=== PATIENT | male | born 1945 | race Caucasian/White ===

== ENCOUNTER 2021-08-24 11:50 | Outpatient (CLI) | payer MEDICARE ==
[2021-08-24 23:43] LABS: SARS-CoV-2 PCR by NAA Not Detected (NotDetected)
== END 2021-08-24 11:51 | disposition home or self-care (01) ==
LOC: CSHLAB 11:50
PROVIDERS: ATTEND Internal Medicine Gastroenterology
DX: Z20.822 Contact with and (suspected) exposure to COVID-19 (principal); K63.5 Polyp of colon
CPT/HCPCS: U0003; U0005

== ENCOUNTER 2021-08-27 08:44 | Day surgery (SDC) | payer MEDICARE ==
[2021-08-21 14:57] VITALS: BMI 34.7
[2021-08-27] MEDS ORDERED: Lidocaine 1% MPF 2 ML VIAL ONE (09:18)
[2021-08-27] MEDS ORDERED: Lidocaine 1% PF 5 ML VIAL ONE (09:40)
[2021-08-27] MEDS ORDERED: PROPOFOL 40 ML ONE (09:40)
[2021-08-27] MEDS ORDERED: PHENYLEPHRINE-NS 100 MCG/ML 10 ML SYRINGE ONE (09:55)
[2021-08-27] MEDS ORDERED: PROPOFOL 20 ML ONE (10:11)
== END 2021-08-27 10:53 | disposition home or self-care (01) ==
LOC: CSHSDC 08:44
PROVIDERS: ATTEND Internal Medicine Gastroenterology
PROC: 0DJD8ZZ Inspection of Lower Intestinal Tract, Via Natural or Artificial Opening Endoscopic (ICD-10-PCS; principal; 2021-08-27)
DX: R19.7 Diarrhea, unspecified (principal); Z86.010 Personal history of colon polyps; Q43.8 Other specified congenital malformations of intestine; K64.9 Unspecified hemorrhoids; I10 Essential (primary) hypertension; E11.9 Type 2 diabetes mellitus without complications; E78.5 Hyperlipidemia, unspecified; F41.9 Anxiety disorder, unspecified; F32.A Depression, unspecified; N40.0 Benign prostatic hyperplasia without lower urinary tract symptoms; F17.220 Nicotine dependence, chewing tobacco, uncomplicated
CPT/HCPCS: J2704

== ENCOUNTER 2021-09-10 14:17 | Emergency (ER) | payer MEDICARE ==
[2021-09-10 15:54] LABS: #Basophils 0.1 10x3/uL (0.0-0.2); #Eosinphils 0.3 10x3/uL (0.0-0.5); #Monocytes 0.7 10x3/uL (0.0-1.1); %Basophils 0.9 % (0.0-2.0); %Eosinophils 3.6 % (0.0-6.0); %Monocytes 9.4 % (0.0-10.0); Hemoglobin 13.3 g/dL (13.5-17.5); Mean Corpuscular HGB CONC 32.9 g/dL (32.0-36.0); Mean Corpuscular Hemoglobin 29.7 pg (27.0-33.0); Mean Corpuscular Volume 90.2 fl (81.2-95.1); Mean Platelet Volume 8.4 fl (7.4-10.4); Platelet Count 410 10x3/uL (150-450); RBC Distribution Width 13.7 % (11.5-14.5); Red Blood Cell (RBC) Count 4.48 10x6/uL (4.32-5.72)
[2021-09-10 16:12] LABS: ALT (SGPT) 23 U/L (8-55); AST (SGOT) 15 U/L (5-34); Albumin 3.4 g/dL (3.4-4.8); Alkaline Phosphatase 57 U/L (40-110); Anion Gap 12 mmol/L (10-20); BUN (Urea Nitrogen) 17 mg/dL (8.4-25.7); Bilirubin, Total 0.2 mg/dL (0.2-1.2); Calc. Creatinine Clearance 0 mL/min (70-130); Calcium 9.1 mg/dL (7.8-10.44); Carbon Dioxide 27 mmol/L (23-31); Chloride 107 mmol/L (98-107); Globulin 2.9 g/dL (2.4-3.5); Glucose 180 mg/dL (83-110); Protein, Total 6.3 g/dL (5.8-8.1); Sodium 142 mmol/L (136-145)
== END 2021-09-10 17:00 | disposition home or self-care (01) ==
LOC: CSHERS 14:17
DX: R42 Dizziness and giddiness (principal); E11.9 Type 2 diabetes mellitus without complications; I10 Essential (primary) hypertension; Z79.84 Long term (current) use of oral hypoglycemic drugs; Z79.899 Other long term (current) drug therapy
CPT/HCPCS: 70450; 80053; 85025; 93005

== ENCOUNTER 2022-03-17 13:33 | Outpatient (CLI) | payer MEDICARE | END 2022-03-17 13:34 | disposition home or self-care (01) | LOC: CSHULT 13:33 | PROVIDERS: ATTEND Internal Medicine | DX: R06.09 Other forms of dyspnea (principal); I51.9 Heart disease, unspecified | CPT/HCPCS: 93306 ==

== ENCOUNTER 2022-08-05 02:21 | Inpatient (IN) | payer OTHER, MEDICARE ==
[2022-08-05 03:12] LABS: #Basophils 0.1 10x3/uL (0.0-0.2); #Monocytes 1.1 10x3/uL (0.0-1.1); #Neutrophils 10.2 10x3/uL (1.5-8.4); %Basophils 0.4 % (0.0-2.0); %Eosinophils 0.2 % (0.0-6.0); %Lymphocytes 3.4 % (18.0-47.0); %Monocytes 9.4 % (0.0-10.0); %Neutrophils 85.8 % (40.0-75.0); Hemoglobin 14.5 g/dL (13.5-17.5); Mean Corpuscular HGB CONC 33.6 g/dL (32.0-36.0); Mean Corpuscular Hemoglobin 29.5 pg (27.0-33.0); Mean Corpuscular Volume 87.8 fl (81.2-95.1); Mean Platelet Volume 8.9 fl (7.4-10.4); Platelet Count 256 10x3/uL (150-450); RBC Distribution Width 14.3 % (11.5-14.5); Red Blood Cell (RBC) Count 4.91 10x6/uL (4.32-5.72); White Blood Cell (WBC) Count 11.8 10x3/uL (3.5-10.5)
[2022-08-05 03:25] LABS: ALT (SGPT) 30 U/L (8-55); AST (SGOT) 19 U/L (5-34); Albumin 3.8 g/dL (3.4-4.8); Alkaline Phosphatase 55 U/L (40-110); Anion Gap 20 mmol/L (10-20); BUN (Urea Nitrogen) 10 mg/dL (8.4-25.7); Bilirubin, Total 0.6 mg/dL (0.2-1.2); CK (CPK) 208 U/L (30-200); Calc. Creatinine Clearance 0 mL/min (70-130); Calcium 8.6 mg/dL (7.8-10.44); Carbon Dioxide 17 mmol/L (23-31); Chloride 99 mmol/L (98-107); Estimated GFR 80; Globulin 2.6 g/dL (2.4-3.5); Glucose 214 mg/dL (83-110); Lipase 15 U/L (8-78); Potassium 3.6 mmol/L (3.5-5.1); Protein, Total 6.4 g/dL (5.8-8.1); Sodium 132 mmol/L (136-145)
[2022-08-05] MEDS ORDERED: Vancomycin 1 GM VIAL ONE (04:30)
[2022-08-05] MEDS ORDERED: cefTRIAXone\\ROCEPHIN 2 GM VIAL ONE (04:30)
[2022-08-05 05:03] LABS: SARS-CoV-2 NAA Rapid Test Not Detected (NotDetected)
[2022-08-05 05:44] LABS: Bilirubin Neg (Negative); Blood, Urine 10 (Negative); Clarity Clear (Clear); Glucose, Urine (Dipstick) 100 mg/dL (Negative); Ketone, Urine 15 mg/dL (Negative); Leukocyte 100 (Negative); Nitrite Negative (Negative); Protein, Urine (Dipstick) 30 mg/dl (Neg-Trace); Specific Gravity, Urine 1.015 (1.005-1.030); Urobilinogen Normal mg/dL (Less than 2)
[2022-08-05 05:49] LABS: Bacteria/HPF None Seen HPF (None Seen); RBC/HPF 0-3 HPF (0-3)
[2022-08-05 06:32] LABS: Anion Gap 17 mmol/L (10-20); BUN (Urea Nitrogen) 10 mg/dL (8.4-25.7); Calc. Creatinine Clearance 0 mL/min (70-130); Calcium 8.4 mg/dL (7.8-10.44); Carbon Dioxide 20 mmol/L (23-31); Chloride 104 mmol/L (98-107); Estimated GFR 86; Glucose 154 mg/dL (83-110); Potassium 4.1 mmol/L (3.5-5.1); Sodium 137 mmol/L (136-145)
[2022-08-05 06:34] LABS: Lactic Acid 4.2 mmol/L (0.5-2.2)
[2022-08-05] MEDS ORDERED: Communication Order-Pharmacy FS ONE (06:50)
[2022-08-05] MEDS ORDERED: Senokot S 8.6-50 MG TAB PO PRN (06:53)
[2022-08-05] MEDS ORDERED: Dextrose 5% in Water 1,000 ML IV PRN (07:25)
[2022-08-05] MEDS ORDERED: Dextrose 50% Abboject 50 ML SYRINGE SLOW IVP PRN (07:25)
[2022-08-05 07:44] LABS: Magnesium 1.2 mg/dL (1.6-2.6)
[2022-08-05] MEDS ORDERED: Lactated Ringer's 1,000 ML IV SCH (08:00)
[2022-08-05 08:34] VITALS: BMI 33.0
[2022-08-05] MEDS ORDERED: Cefepime 2 GM in Sodium Chloride 0.9% 100 ML IVPB SCH (09:00)
[2022-08-05] MEDS ORDERED: Lactated Ringer's 500 ML IV SCH (09:00)
[2022-08-05] MEDS ORDERED: SEMAGLUTIDE 7 MG PO SCH (09:00)
[2022-08-05] MEDS: Isosorbide Dinitrate 10 MG TAB PO SCH ×2 (09:18→21:43)
[2022-08-05] MEDS: Aspirin 81 mg Enteric Coated Tablet PO SCH (09:19)
[2022-08-05] MEDS: Vancomycin HCl 750 MG in Sodium Chloride 0.9% 250 ML 250 ML IVPB SCH ×2 (09:19→11:07)
[2022-08-05] MEDS: FLUoxetine HCl 20 MG CAP PO SCH (09:20)
[2022-08-05] MEDS: Cholecalciferol 1,000 UNITS (25 MCG) TAB PO SCH (09:20)
[2022-08-05] MEDS: Lisinopril 5 MG TAB PO SCH (09:20)
[2022-08-05] MEDS: Sodium Chloride 0.9% 1,000 ML IV SCH ×2 (09:21→14:29)
[2022-08-05] MEDS: HumaLOG 300 UNITS/3 ML VIAL SC PRN ×2 (11:25→21:44)
[2022-08-05] MEDS ORDERED: HYDROcodone/Acetaminophen 7.5/325 mg Tablet PO PRN (13:25)
[2022-08-05] MEDS ORDERED: Electrolyte Replacement Protocol 1 EACH FS SCH (13:45)
[2022-08-05] MEDS: Magnesium 2 GM/50 ML(in water) 2 GM in Premix Bag 1 BAG IVPB SCH ×2 (14:16→16:19)
[2022-08-05] MEDS: Acetaminophen 325 MG TAB PO PRN (14:16)
[2022-08-05] MEDS ORDERED: Lidocaine 1% 20 ML MDV SC SCH (16:15)
[2022-08-05 18:25] LABS: Lactic Acid 1.8 mmol/L (0.5-2.2)
[2022-08-05] MEDS ORDERED: Vancomycin HCl 1 GM in Sodium Chloride 0.9% 250 ML 250 ML IVPB SCH (21:00)
[2022-08-05] MEDS ORDERED: Vancomycin 1.5 GRAM/300 ML BAG IVPB SCH (21:00)
[2022-08-05] MEDS: Finasteride 5 MG TAB PO SCH (21:43)
[2022-08-05] MEDS: QUEtiapine 100 MG TAB PO SCH (21:43)
[2022-08-05] MEDS: Atorvastatin Calcium 40 MG TAB PO SCH (21:43)
[2022-08-06] MEDS: Sodium Chloride 0.9% 1,000 ML IV SCH ×2 (03:33→10:19)
[2022-08-06] MEDS: cefTRIAXone\\ROCEPHIN 1 GM in Sodium Chloride 0.9% 100 ML IVPB SCH (03:35)
[2022-08-06 04:42] LABS: #Eosinphils 0.3 10x3/uL (0.0-0.5); #Monocytes 1.1 10x3/uL (0.0-1.1); #Neutrophils 4.9 10x3/uL (1.5-8.4); %Basophils 0.4 % (0.0-2.0); %Eosinophils 3.9 % (0.0-6.0); %Lymphocytes 11.1 % (18.0-47.0); Mean Corpuscular HGB CONC 33.5 g/dL (32.0-36.0); Mean Corpuscular Hemoglobin 29.6 pg (27.0-33.0); Mean Corpuscular Volume 88.4 fl (81.2-95.1); Mean Platelet Volume 9.4 fl (7.4-10.4); Platelet Count 219 10x3/uL (150-450); RBC Distribution Width 14.3 % (11.5-14.5); Red Blood Cell (RBC) Count 4.39 10x6/uL (4.32-5.72); White Blood Cell (WBC) Count 7.1 10x3/uL (3.5-10.5)
[2022-08-06 04:51] LABS: Anion Gap 14 mmol/L (10-20); BUN (Urea Nitrogen) 8 mg/dL (8.4-25.7); Calc. Creatinine Clearance 125 mL/min (70-130); Calcium 7.8 mg/dL (7.8-10.44); Carbon Dioxide 21 mmol/L (23-31); Chloride 105 mmol/L (98-107); Estimated GFR 95; Glucose 138 mg/dL (83-110); Magnesium 2.3 mg/dL (1.6-2.6); Potassium 3.8 mmol/L (3.5-5.1); Sodium 136 mmol/L (136-145)
[2022-08-06] MEDS ORDERED: glipiZIDE 5 MG TAB PO SCH (09:00)
[2022-08-06] MEDS: Aspirin 81 mg Enteric Coated Tablet PO SCH (10:05)
[2022-08-06] MEDS: Cholecalciferol 1,000 UNITS (25 MCG) TAB PO SCH (10:06)
[2022-08-06] MEDS: Lisinopril 5 MG TAB PO SCH (10:06)
[2022-08-06] MEDS: FLUoxetine HCl 20 MG CAP PO SCH (10:07)
[2022-08-06] MEDS: Acetaminophen 325 MG TAB PO PRN (10:07)
[2022-08-06] MEDS: Isosorbide Dinitrate 10 MG TAB PO SCH ×2 (10:07→21:40)
[2022-08-06] MEDS: HumaLOG 300 UNITS/3 ML VIAL SC PRN (12:05)
[2022-08-06] MEDS: glipiZIDE 5 MG TAB PO SCH (16:20)
[2022-08-06] MEDS: Finasteride 5 MG TAB PO SCH (21:40)
[2022-08-06] MEDS: QUEtiapine 100 MG TAB PO SCH (21:40)
[2022-08-06] MEDS: Atorvastatin Calcium 40 MG TAB PO SCH (22:01)
[2022-08-07 04:09] LABS: Hemoglobin 12.6 g/dL (13.5-17.5); Mean Corpuscular HGB CONC 32.4 g/dL (32.0-36.0); Mean Corpuscular Hemoglobin 29.3 pg (27.0-33.0); Mean Corpuscular Volume 90.5 fl (81.2-95.1); Mean Platelet Volume 9.2 fl (7.4-10.4); Platelet Count 228 10x3/uL (150-450); RBC Distribution Width 14.2 % (11.5-14.5); White Blood Cell (WBC) Count 5.2 10x3/uL (3.5-10.5)
[2022-08-07 04:12] LABS: MDiff Complete? YES; Manual Diff?? YES
[2022-08-07 04:17] LABS: Anion Gap 13 mmol/L (10-20); BUN (Urea Nitrogen) 9 mg/dL (8.4-25.7); Calc. Creatinine Clearance 135 mL/min (70-130); Calcium 8.3 mg/dL (7.8-10.44); Carbon Dioxide 21 mmol/L (23-31); Chloride 107 mmol/L (98-107); Estimated GFR 98; Glucose 143 mg/dL (83-110); Potassium 3.4 mmol/L (3.5-5.1); Sodium 138 mmol/L (136-145)
[2022-08-07 04:35] LABS: Band 5 % (5-11); Eosinophils 6 % (0-10); Lymphocytes 13 % (21-51); Monocytes 15 % (0-10); Neutrophil 52 % (42-75); Reactive Lymphocytes 9 % (0-10)
[2022-08-07] MEDS: cefTRIAXone\\ROCEPHIN 1 GM in Sodium Chloride 0.9% 100 ML IVPB SCH (04:35)
[2022-08-07 04:36] LABS: Platelet Morphology Comment Appears Adequate
[2022-08-07 04:37] LABS: Anisocytosis SLIGHT = 6-15 cells (100X) (0-5/hpf); Elliptocytes SLIGHT = 2-5 cells (100X) (0-1/hpf); Macrocytosis SLIGHT = 6-15 cells (100X) (0-5/hpf); Microcytosis SLIGHT = 6-15 cells (100X) (0-5/hpf)
[2022-08-07] MEDS ORDERED: Potassium Chloride 20 MEQ TAB PO SCH ×2 (08:00→11:00)
[2022-08-07] MEDS: FLUoxetine HCl 20 MG CAP PO SCH (09:20)
[2022-08-07] MEDS: Aspirin 81 mg Enteric Coated Tablet PO SCH (09:21)
[2022-08-07] MEDS: glipiZIDE 5 MG TAB PO SCH ×2 (09:21→17:06)
[2022-08-07] MEDS: Lisinopril 5 MG TAB PO SCH (09:21)
[2022-08-07] MEDS: Isosorbide Dinitrate 10 MG TAB PO SCH (09:21)
[2022-08-07] MEDS: Cholecalciferol 1,000 UNITS (25 MCG) TAB PO SCH (09:22)
[2022-08-07 17:04] VITALS: BP 132/78; TEMP 98.7
== END 2022-08-07 18:10 | disposition home health service (06) | DRG 872 ==
LOC: SUATTDRO 02:21 → CSHERS 02:21 → CSHTELE 06:53
PROVIDERS: ADMIT Internal Medicine; ATTEND Family Medicine
PROC: 0HQKXZZ Repair Right Lower Leg Skin, External Approach (ICD-10-PCS; principal; 2022-08-05)
PROC: 3E03329 Introduction of Other Anti-infective into Peripheral Vein, Percutaneous Approach (ICD-10-PCS; 2022-08-05)
DX: A41.9 Sepsis, unspecified organism (principal); E87.20 Acidosis, unspecified; N39.0 Urinary tract infection, site not specified; N13.8 Other obstructive and reflux uropathy; Z20.822 Contact with and (suspected) exposure to COVID-19; E66.9 Obesity, unspecified; I10 Essential (primary) hypertension; E11.9 Type 2 diabetes mellitus without complications; N40.1 Benign prostatic hyperplasia with lower urinary tract symptoms; E87.6 Hypokalemia; F98.8 Other specified behavioral and emotional disorders with onset usually occurring in childhood and adolescence; N43.3 Hydrocele, unspecified; S81.011A Laceration without foreign body, right knee, initial encounter; W01.0XXA Fall on same level from slipping, tripping and stumbling without subsequent striking against object, initial encounter; F41.9 Anxiety disorder, unspecified; E78.5 Hyperlipidemia, unspecified; F32.A Depression, unspecified; Z79.82 Long term (current) use of aspirin; Z79.899 Other long term (current) drug therapy; Z79.84 Long term (current) use of oral hypoglycemic drugs; Z90.89 Acquired absence of other organs; Z83.3 Family history of diabetes mellitus; Z82.49 Family history of ischemic heart disease and other diseases of the circulatory system; Z68.33 Body mass index [BMI] 33.0-33.9, adult
CPT/HCPCS: 36415; 36416; 70450; 71045; 74176; 76856; 76870; 80048; 80053; 81003; 81015; 82010; 82550; 83605; 83690; 83735; 84146; 84484; 85025; 87040; 87086; 93005; 93976; 96365; 96366; 96367; 97139; J0696; J1650; J1815; J3370; J3475; J3490; J7050; J7120; U0002

== ENCOUNTER 2022-08-08 17:55 | Inpatient (IN) | payer MEDICARE ==
[~2022-08-08 17:55] MED LIST: Amiodarone 150 MG/3 ML VIAL ONE
[2022-08-08] MEDS ORDERED: Amiodarone In Dextrose 200 ML ONE (18:20)
[2022-08-08 18:25] LABS: Hemoglobin 13.3 g/dL (13.5-17.5); MDiff Complete? YES; Manual Diff?? YES; Mean Corpuscular HGB CONC 31.1 g/dL (32.0-36.0); Mean Corpuscular Hemoglobin 29.6 pg (27.0-33.0); Mean Corpuscular Volume 94.9 fl (81.2-95.1); Mean Platelet Volume 9.6 fl (7.4-10.4); Platelet Count 405 10x3/uL (150-450); White Blood Cell (WBC) Count 22.9 10x3/uL (3.5-10.5)
[2022-08-08 18:29] LABS: PTT 26.5 sec (22.0-33.0); Prothrombin Time 10.9 sec (9.5-12.1)
[2022-08-08] MEDS ORDERED: Amiodarone In Dextrose 200 ML IVPB SCH (18:30)
[2022-08-08 18:36] LABS: ALT (SGPT) 124 U/L (8-55); AST (SGOT) 85 U/L (5-34); Albumin 3.6 g/dL (3.4-4.8); Alkaline Phosphatase 105 U/L (40-110); Anion Gap 30 mmol/L (10-20); BUN (Urea Nitrogen) 11 mg/dL (8.4-25.7); Bilirubin, Total 0.4 mg/dL (0.2-1.2); CK (CPK) 371 U/L (30-200); Calc. Creatinine Clearance 0 mL/min (70-130); Calcium 8.5 mg/dL (7.8-10.44); Carbon Dioxide 10 mmol/L (23-31); Chloride 103 mmol/L (98-107); Estimated GFR 56; Globulin 2.7 g/dL (2.4-3.5); Glucose 367 mg/dL (83-110); Lipase 104 U/L (8-78); Magnesium 1.9 mg/dL (1.6-2.6); Potassium 4.8 mmol/L (3.5-5.1); Protein, Total 6.3 g/dL (5.8-8.1); Sodium 138 mmol/L (136-145)
[2022-08-08 18:40] LABS: Band 7 % (5-11); Eosinophils 3 % (0-10); Lymphocytes 21 % (21-51); Monocytes 8 % (0-10); Neutrophil 60 % (42-75); Reactive Lymphocytes 1 % (0-10)
[2022-08-08 18:41] LABS: Platelet Morphology Comment Appears Adequate; RBC Morphology Normal
[2022-08-08 18:55] LABS: CKMB 4.5 ng/mL (0-6.6)
[2022-08-08 19:07] LABS: Phosphorus 6.4 mg/dL (2.3-4.7)
[2022-08-08] MEDS ORDERED: Cefepime 2 GM VIAL ONE (19:15)
[2022-08-08] MEDS ORDERED: Aspirin Chewable 81 MG TAB ONE (19:15)
[2022-08-08] MEDS ORDERED: Vancomycin 1 GM VIAL ONE (19:50)
[2022-08-08] MEDS ORDERED: INSULIN REGULAR IN 0.9 % NACL 100 UNIT/100 ML BAG ONE (19:50)
[2022-08-08] MEDS ORDERED: Communication Order-Pharmacy FS ONE (20:12)
[2022-08-08] MEDS ORDERED: Electrolyte Replacement Protocol IVPB SCH (20:23)
[2022-08-08] MEDS ORDERED: Dextrose 5 %-0.45 % NaCl 1,000 ML IV PRN (20:23)
[2022-08-08] MEDS ORDERED: Sodium Chloride 0.9% 1,000 ML IV PRN ×4 (20:23)
[2022-08-08] MEDS ORDERED: NS 0.9% w/ 20 MEQ KCL 1,000 ML IV PRN ×2 (20:23)
[2022-08-08] MEDS ORDERED: Dextrose 50% Abboject 50 ML SYRINGE SLOW IVP PRN (20:23)
[2022-08-08] MEDS ORDERED: INSULIN REGULAR IN 0.9 % NACL 100 UNIT in Premix Bag 1 BAG IVPB SCH (20:30)
[2022-08-08] MEDS ORDERED: Amiodarone In Dextrose 360 MG in Premix Bag 1 BAG IVPB SCH (20:30)
[2022-08-08] MEDS ORDERED: Acetaminophen 325 MG TAB PO PRN (20:30)
[2022-08-08] MEDS ORDERED: Piperacillin/Tazobactam 3.375 GM in Sodium Chloride 0.9% 100 ML IVPB SCH (20:45)
[2022-08-08 21:19] LABS: SARS-CoV-2 NAA Rapid Test Not Detected (NotDetected)
[2022-08-08 21:34] VITALS: BMI 33.4
[2022-08-08] MEDS ORDERED: Vancomycin HCl 1 GM in Sodium Chloride 0.9% 250 ML 250 ML IVPB SCH (21:45)
[2022-08-08 21:53] LABS: Actual Bicarbonate (HCO3v) 15 mEq/L (22-28); Base Excess -7.9 mEq/L (-2 - +2); Calcium, Ionized (venous) 0.97 mmol/L (1.16-1.32); Chloride (VBG) 106 mmol/L (98-106); Critical Notified By: Udy, RRT; Hemoglobin (Hb) 13.4 g/dL (12.6-17.4); Puncture Site Other Site; RapidComm Collect By LAB; pH (venous) 7.39 (7.32-7.43)
[2022-08-08 21:55] LABS: Lactic Acid 4.7 mmol/L (0.5-2.2)
[2022-08-08 22:06] LABS: Troponin I 3.793 ng/mL (< 0.028)
[2022-08-08] MEDS: D5 1/2 NS w/20 mEq KCL 1,000 ML IV PRN (22:11)
[2022-08-08 22:13] LABS: Anion Gap 18 mmol/L (10-20); BUN (Urea Nitrogen) 12 mg/dL (8.4-25.7); Calc. Creatinine Clearance 88 mL/min (70-130); Calcium 7.6 mg/dL (7.8-10.44); Carbon Dioxide 14 mmol/L (23-31); Chloride 110 mmol/L (98-107); Estimated GFR 77; Glucose 142 mg/dL (83-110); Magnesium 1.8 mg/dL (1.6-2.6); Phosphorus 2.3 mg/dL (2.3-4.7); Potassium 3.5 mmol/L (3.5-5.1); Sodium 138 mmol/L (136-145)
[2022-08-08] MEDS ORDERED: Dextrose 10% in Water 250 ML IVPB PRN (22:15)
[2022-08-08] MEDS ORDERED: Magnesium 2 GM/50 ML(in water) 2 GM in Premix Bag 1 BAG IVPB SCH (23:30)
[2022-08-08] MEDS: Potassium Chloride 20 MEQ in Premix Bag 1 BAG IVPB SCH (23:43)
[2022-08-09] MEDS ORDERED: Tamsulosin HCl 0.4 MG CAP PO SCH (00:45)
[2022-08-09 01:21] LABS: Lactic Acid 3.2 mmol/L (0.5-2.2)
[2022-08-09 01:24] LABS: Troponin I 9.195 ng/mL (< 0.028)
[2022-08-09 01:29] LABS: Anion Gap 17 mmol/L (10-20); BUN (Urea Nitrogen) 11 mg/dL (8.4-25.7); Calc. Creatinine Clearance 106 mL/min (70-130); Calcium 7.4 mg/dL (7.6-10.4); Carbon Dioxide 13 mmol/L (23-31); Chloride 112 mmol/L (98-107); Estimated GFR 90; Glucose 173 mg/dL (83-110); Potassium 3.8 mmol/L (3.5-5.1); Sodium 138 mmol/L (136-145)
[2022-08-09] MEDS: Piperacillin/Tazobactam 3.375 GM in Sodium Chloride 0.9% 100 ML IVPB SCH ×3 (02:13→17:04)
[2022-08-09] MEDS ORDERED: Cefepime 2 GM in Sodium Chloride 0.9% 100 ML IVPB SCH (03:00)
[2022-08-09] MEDS: Potassium Chloride 20 MEQ in Premix Bag 1 BAG IVPB SCH (03:20)
[2022-08-09] MEDS: D5 1/2 NS w/20 mEq KCL 1,000 ML IV PRN (03:21)
[2022-08-09 04:22] LABS: Anion Gap 15 mmol/L (10-20); BUN (Urea Nitrogen) 9 mg/dL (8.4-25.7); Calc. Creatinine Clearance 107 mL/min (70-130); Calcium 7.8 mg/dL (7.8-10.44); Carbon Dioxide 14 mmol/L (23-31); Chloride 110 mmol/L (98-107); Estimated GFR 91; Glucose 174 mg/dL (83-110); Hemoglobin 13.1 g/dL (13.5-17.5); Mean Corpuscular Hemoglobin 29.4 pg (27.0-33.0); Mean Corpuscular Volume 91.9 fl (81.2-95.1); Mean Platelet Volume 9.6 fl (7.4-10.4); Platelet Count 294 10x3/uL (150-450); Potassium 3.8 mmol/L (3.5-5.1); RBC Distribution Width 14.2 % (11.5-14.5); Red Blood Cell (RBC) Count 4.46 10x6/uL (4.32-5.72); Sodium 135 mmol/L (136-145); White Blood Cell (WBC) Count 15.5 10x3/uL (3.5-10.5)
[2022-08-09] MEDS ORDERED: Furosemide 40 MG/4 ML VIAL SLOW IVP SCH (05:00)
[2022-08-09 05:18] LABS: Magnesium 2.5 mg/dL (1.6-2.6); Phosphorus 2.9 mg/dL (2.3-4.7)
[2022-08-09 07:37] LABS: Actual Bicarbonate (HCO3a) 18.1 mEq/L (22-28); Base Excess (BEa) -5.3 mEq/L (-2.0 to +3.0); CO2 Tension 29.6 mmHg (35.0-45.0); Calcium, Ionized (arterial) 1.02 mmol/L (1.12-1.30); Carboxyhemoglobin (COHb) 0.2 gm% (0.0-3.0); Hemoglobin (Hb) 13.8 g/dL (14.0-18.0); O2 Tension (PaO2), arterial 136.5 mmHg (> 70.0); Potassium - ABG Lab 4.4 mmol/L (3.70-5.30); Puncture Site LRA
[2022-08-09] MEDS: Vancomycin HCl 1 GM in Sodium Chloride 0.9% 250 ML 250 ML IVPB SCH ×2 (07:39→20:59)
[2022-08-09] MEDS: Pantoprazole 40 MG VIAL IVP SCH (07:40)
[2022-08-09] MEDS: Aspirin 81 mg Enteric Coated Tablet PO SCH (07:40)
[2022-08-09 07:57] LABS: Anion Gap 19 mmol/L (10-20); BUN (Urea Nitrogen) 9 mg/dL (8.4-25.7); Calc. Creatinine Clearance 106 mL/min (70-130); Calcium 7.9 mg/dL (7.8-10.44); Carbon Dioxide 14 mmol/L (23-31); Chloride 109 mmol/L (98-107); Estimated GFR 90; Glucose 176 mg/dL (83-110); Potassium 4.6 mmol/L (3.5-5.1); Sodium 137 mmol/L (136-145)
[2022-08-09 08:00] LABS: CKMB 73.5 ng/mL (0-6.6)
[2022-08-09] MEDS ORDERED: Dextrose 50% Abboject 50 ML SYRINGE SLOW IVP PRN (08:34)
[2022-08-09] MEDS ORDERED: Dextrose 5% in Water 1,000 ML IV PRN (08:34)
[2022-08-09] MEDS: Furosemide 40 MG/4 ML VIAL SLOW IVP SCH (09:32)
[2022-08-09] MEDS: Lantus 1000 UNITS/10 ML VIAL SC SCH (09:32)
[2022-08-09] MEDS: HumaLOG 300 UNITS/3 ML VIAL SC PRN (11:42)
[2022-08-09] MEDS: Tamsulosin HCl 0.4 MG CAP PO SCH (20:59)
[2022-08-09] MEDS: Amiodarone 200 MG TAB PO SCH (20:59)
[2022-08-09] MEDS: Atorvastatin Calcium 40 MG TAB PO SCH (20:59)
[2022-08-09] MEDS: Metoprolol Tartrate 25 MG TAB PO SCH (20:59)
[2022-08-09] MEDS ORDERED: Vancomycin 1.5 GRAM/300 ML BAG 1.5 GM in Premix Bag 1 BAG IVPB SCH (21:00)
[2022-08-10] MEDS: Piperacillin/Tazobactam 3.375 GM in Sodium Chloride 0.9% 100 ML IVPB SCH ×3 (01:02→17:36)
[2022-08-10 04:57] LABS: #Eosinphils 0.1 10x3/uL (0.0-0.5); #Monocytes 1.4 10x3/uL (0.0-1.1); #Neutrophils 9.3 10x3/uL (1.5-8.4); %Basophils 0.3 % (0.0-2.0); %Lymphocytes 13.6 % (18.0-47.0); %Monocytes 11.2 % (0.0-10.0); %Neutrophils 73.3 % (40.0-75.0); Hemoglobin 12.7 g/dL (13.5-17.5); Mean Corpuscular HGB CONC 33.2 g/dL (32.0-36.0); Mean Corpuscular Hemoglobin 29.7 pg (27.0-33.0); Mean Corpuscular Volume 89.5 fl (81.2-95.1); Mean Platelet Volume 9.5 fl (7.4-10.4); Platelet Count 321 10x3/uL (150-450); RBC Distribution Width 14.2 % (11.5-14.5); Red Blood Cell (RBC) Count 4.28 10x6/uL (4.32-5.72); White Blood Cell (WBC) Count 12.7 10x3/uL (3.5-10.5)
[2022-08-10 05:09] LABS: Anion Gap 15 mmol/L (10-20); BUN (Urea Nitrogen) 10 mg/dL (8.4-25.7); Calc. Creatinine Clearance 107 mL/min (70-130); Carbon Dioxide 22 mmol/L (23-31); Cardiac Risk 5.5 (Less than 4.5); Chloride 108 mmol/L (98-107); Cholesterol 115 mg/dl (< 200 Desired); Estimated GFR 91; Glucose 192 mg/dL (83-110); HDL Cholesterol 21 mg/dL (>60 Neg Risk); LDL Cholesterol, Calculated 48 mg/dL; Magnesium 2.5 mg/dL (1.6-2.6); Potassium 4.3 mmol/L (3.5-5.1); Sodium 141 mmol/L (136-145); Triglycerides 229 mg/dL (Less than 150)
[2022-08-10] MEDS: HumaLOG 300 UNITS/3 ML VIAL SC PRN ×4 (05:43→20:20)
[2022-08-10] MEDS: Aspirin 81 mg Enteric Coated Tablet PO SCH (08:13)
[2022-08-10] MEDS: Furosemide 40 MG/4 ML VIAL SLOW IVP SCH (08:13)
[2022-08-10] MEDS: Pantoprazole 40 MG VIAL IVP SCH (08:13)
[2022-08-10] MEDS: Amiodarone 200 MG TAB PO SCH ×2 (08:13→20:20)
[2022-08-10] MEDS: Metoprolol Tartrate 25 MG TAB PO SCH ×2 (08:13→20:21)
[2022-08-10] MEDS: Lantus 1000 UNITS/10 ML VIAL SC SCH (08:16)
[2022-08-10 08:32] LABS: Vancomycin, Trough 7.1 ug/mL
[2022-08-10] MEDS: Vancomycin HCl 1 GM in Sodium Chloride 0.9% 250 ML 250 ML IVPB SCH (09:42)
[2022-08-10] MEDS: Vancomycin 1.5 GRAM/300 ML BAG 1.5 GM in Premix Bag 1 BAG IVPB SCH ×2 (09:43→20:20)
[2022-08-10 10:08] LABS: Bilirubin Neg (Negative); Blood, Urine Negative (Negative); Clarity Clear (Clear); Glucose, Urine (Dipstick) 50 mg/dL (Negative); Ketone, Urine Negative (Negative); Leukocyte Negative (Negative); Nitrite Negative (Negative); Protein, Urine (Dipstick) Negative (Neg-Trace); Specific Gravity, Urine 1.005 (1.005-1.030); Urobilinogen Normal mg/dL (Less than 2)
[2022-08-10 10:55] LABS: Bacteria/HPF None Seen HPF (None Seen); CAUTI Indications for Culture Alt mental st,lethar; RBC/HPF None Seen HPF (0-3); Squamous Epithelial None Seen HPF (0-3); Urine Culture Reflex No No; WBC/HPF None Seen HPF (0-3)
[2022-08-10 12:39] LABS: Hemoglobin A1c 6.2 % (4.0-6.0)
[2022-08-10] MEDS ORDERED: traZODone HCl 50 MG TAB PO SCH ×2 (16:30→21:00)
[2022-08-10] MEDS: Atorvastatin Calcium 40 MG TAB PO SCH (20:20)
[2022-08-10] MEDS: Tamsulosin HCl 0.4 MG CAP PO SCH (20:21)
[2022-08-11] MEDS: Piperacillin/Tazobactam 3.375 GM in Sodium Chloride 0.9% 100 ML IVPB SCH ×3 (01:05→17:04)
[2022-08-11 03:54] LABS: #Basophils 0.1 10x3/uL (0.0-0.2); #Eosinphils 0.2 10x3/uL (0.0-0.5); #Monocytes 1.1 10x3/uL (0.0-1.1); #Neutrophils 6.2 10x3/uL (1.5-8.4); %Basophils 0.6 % (0.0-2.0); %Eosinophils 2.4 % (0.0-6.0); %Lymphocytes 24.4 % (18.0-47.0); %Monocytes 10.7 % (0.0-10.0); %Neutrophils 61.1 % (40.0-75.0); Hemoglobin 11.9 g/dL (13.5-17.5); Mean Corpuscular HGB CONC 32.9 g/dL (32.0-36.0); Mean Corpuscular Hemoglobin 29.9 pg (27.0-33.0); Mean Platelet Volume 9.8 fl (7.4-10.4); Platelet Count 288 10x3/uL (150-450); RBC Distribution Width 14.1 % (11.5-14.5); Red Blood Cell (RBC) Count 3.98 10x6/uL (4.32-5.72); White Blood Cell (WBC) Count 10.1 10x3/uL (3.5-10.5)
[2022-08-11 04:10] LABS: ALT (SGPT) 64 U/L (8-55); AST (SGOT) 32 U/L (5-34); Alkaline Phosphatase 73 U/L (40-110); Anion Gap 16 mmol/L (10-20); BUN (Urea Nitrogen) 10 mg/dL (8.4-25.7); Calc. Creatinine Clearance 121 mL/min (70-130); Calcium 7.6 mg/dL (7.8-10.44); Carbon Dioxide 18 mmol/L (23-31); Chloride 107 mmol/L (98-107); Estimated GFR 94; Globulin 2.9 g/dL (2.4-3.5); Glucose 136 mg/dL (83-110); Magnesium 1.9 mg/dL (1.6-2.6); Potassium 3.6 mmol/L (3.5-5.1); Protein, Total 5.9 g/dL (5.8-8.1); Sodium 137 mmol/L (136-145)
[2022-08-11] MEDS ORDERED: Magnesium 2 GM/50 ML(in water) 2 GM in Premix Bag 1 BAG IVPB SCH (04:45)
[2022-08-11] MEDS: Vancomycin 1.5 GRAM/300 ML BAG 1.5 GM in Premix Bag 1 BAG IVPB SCH ×2 (08:04→21:36)
[2022-08-11] MEDS: Pantoprazole 40 MG VIAL IVP SCH (08:04)
[2022-08-11] MEDS: Metoprolol Tartrate 25 MG TAB PO SCH ×2 (08:05→21:36)
[2022-08-11] MEDS: Lisinopril 5 MG TAB PO SCH (08:05)
[2022-08-11] MEDS: Amiodarone 200 MG TAB PO SCH (08:12)
[2022-08-11] MEDS: Aspirin 81 mg Enteric Coated Tablet PO SCH (08:12)
[2022-08-11] MEDS: Furosemide 40 MG/4 ML VIAL SLOW IVP SCH (08:12)
[2022-08-11] MEDS: Lantus 1000 UNITS/10 ML VIAL SC SCH (09:45)
[2022-08-11] MEDS: HumaLOG 300 UNITS/3 ML VIAL SC PRN ×3 (12:37→21:44)
[2022-08-11] MEDS ORDERED: Melatonin 3 MG TAB PO PRN (14:30)
[2022-08-11] MEDS: Atorvastatin Calcium 40 MG TAB PO SCH (21:36)
[2022-08-11] MEDS: Tamsulosin HCl 0.4 MG CAP PO SCH (21:36)
[2022-08-11 23:25] LABS: Vancomycin, Trough 14.7 ug/mL
[2022-08-12] MEDS ORDERED: Magnesium Sulfate/D5W 1 GM/100 ML BAG IVPB SCH (02:00)
[2022-08-12] MEDS: Piperacillin/Tazobactam 3.375 GM in Sodium Chloride 0.9% 100 ML IVPB SCH (03:00)
[2022-08-12 05:53] LABS: #Basophils 0.1 10x3/uL (0.0-0.2); #Eosinphils 0.2 10x3/uL (0.0-0.5); #Neutrophils 4.6 10x3/uL (1.5-8.4); %Eosinophils 2.7 % (0.0-6.0); %Lymphocytes 28.1 % (18.0-47.0); %Monocytes 11.5 % (0.0-10.0); %Neutrophils 55.3 % (40.0-75.0); Hemoglobin 12.6 g/dL (13.5-17.5); Mean Corpuscular HGB CONC 32.9 g/dL (32.0-36.0); Mean Corpuscular Hemoglobin 29.2 pg (27.0-33.0); Mean Corpuscular Volume 88.9 fl (81.2-95.1); Mean Platelet Volume 9.2 fl (7.4-10.4); Platelet Count 356 10x3/uL (150-450); Red Blood Cell (RBC) Count 4.31 10x6/uL (4.32-5.72); White Blood Cell (WBC) Count 8.4 10x3/uL (3.5-10.5)
[2022-08-12 05:56] LABS: Anion Gap 15 mmol/L (10-20); BUN (Urea Nitrogen) 13 mg/dL (8.4-25.7); Calc. Creatinine Clearance 111 mL/min (70-130); Calcium 8.3 mg/dL (7.8-10.44); Carbon Dioxide 23 mmol/L (23-31); Chloride 105 mmol/L (98-107); Estimated GFR 92; Glucose 201 mg/dL (83-110); Magnesium 2.2 mg/dL (1.6-2.6); Phosphorus 4.4 mg/dL (2.3-4.7); Potassium 3.7 mmol/L (3.5-5.1); Sodium 139 mmol/L (136-145)
[2022-08-12] MEDS: HumaLOG 300 UNITS/3 ML VIAL SC PRN ×3 (06:48→21:20)
[2022-08-12] MEDS: Vancomycin 1.5 GRAM/300 ML BAG 1.5 GM in Premix Bag 1 BAG IVPB SCH (07:48)
[2022-08-12] MEDS: Pantoprazole 40 MG VIAL IVP SCH (07:48)
[2022-08-12] MEDS: Metoprolol Tartrate 25 MG TAB PO SCH ×2 (07:49→21:21)
[2022-08-12] MEDS: Lisinopril 5 MG TAB PO SCH (07:49)
[2022-08-12] MEDS: Aspirin 81 mg Enteric Coated Tablet PO SCH (07:49)
[2022-08-12] MEDS: Lantus 1000 UNITS/10 ML VIAL SC SCH (07:49)
[2022-08-12] MEDS: Furosemide 40 MG/4 ML VIAL SLOW IVP SCH (07:49)
[2022-08-12] MEDS: Zolpidem Tartrate 5 MG TAB PO PRN (21:21)
[2022-08-12] MEDS: Doxycycline 100 MG CAP PO SCH (21:21)
[2022-08-12] MEDS: Atorvastatin Calcium 40 MG TAB PO SCH (21:21)
[2022-08-12] MEDS: Tamsulosin HCl 0.4 MG CAP PO SCH (21:21)
[2022-08-13] MEDS: Lisinopril 5 MG TAB PO SCH (05:42)
[2022-08-13] MEDS: HumaLOG 300 UNITS/3 ML VIAL SC PRN ×3 (06:04→21:37)
[2022-08-13 06:24] LABS: #Basophils 0.1 10x3/uL (0.0-0.2); #Eosinphils 0.2 10x3/uL (0.0-0.5); #Neutrophils 3.7 10x3/uL (1.5-8.4); %Eosinophils 2.5 % (0.0-6.0); %Lymphocytes 33.3 % (18.0-47.0); %Monocytes 12.7 % (0.0-10.0); %Neutrophils 48.5 % (40.0-75.0); Hemoglobin 12.5 g/dL (13.5-17.5); Mean Corpuscular HGB CONC 32.7 g/dL (32.0-36.0); Mean Corpuscular Hemoglobin 29.1 pg (27.0-33.0); Mean Corpuscular Volume 88.8 fl (81.2-95.1); Mean Platelet Volume 9.2 fl (7.4-10.4); Platelet Count 416 10x3/uL (150-450); White Blood Cell (WBC) Count 7.6 10x3/uL (3.5-10.5)
[2022-08-13 06:43] LABS: Anion Gap 14 mmol/L (10-20); BUN (Urea Nitrogen) 14 mg/dL (8.4-25.7); Calc. Creatinine Clearance 111 mL/min (70-130); Calcium 8.6 mg/dL (7.8-10.44); Carbon Dioxide 23 mmol/L (23-31); Chloride 105 mmol/L (98-107); Estimated GFR 92; Glucose 194 mg/dL (83-110); Magnesium 1.8 mg/dL (1.6-2.6); Potassium 3.7 mmol/L (3.5-5.1); Sodium 138 mmol/L (136-145)
[2022-08-13] MEDS ORDERED: Magnesium 2 GM/50 ML(in water) 2 GM in Premix Bag 1 BAG IVPB SCH ×2 (08:00→11:15)
[2022-08-13] MEDS: Metoprolol Tartrate 25 MG TAB PO SCH ×2 (11:15→21:37)
[2022-08-13] MEDS: Clopidogrel Bisulfate 75 MG TAB PO SCH (11:15)
[2022-08-13] MEDS: Aspirin 81 mg Enteric Coated Tablet PO SCH (11:15)
[2022-08-13] MEDS: Lantus 1000 UNITS/10 ML VIAL SC SCH (11:16)
[2022-08-13] MEDS: Furosemide 40 MG/4 ML VIAL SLOW IVP SCH (11:16)
[2022-08-13] MEDS: Doxycycline 100 MG CAP PO SCH ×2 (11:16→21:37)
[2022-08-13] MEDS: Pantoprazole 40 MG VIAL IVP SCH (11:17)
[2022-08-13] MEDS: Tamsulosin HCl 0.4 MG CAP PO SCH (21:37)
[2022-08-13] MEDS: Atorvastatin Calcium 40 MG TAB PO SCH (21:37)
[2022-08-13] MEDS: Zolpidem Tartrate 5 MG TAB PO PRN (21:37)
[2022-08-13 23:01] LABS: Campy jejuni + coli by PCR Negative (Negative); STEC Shiga Toxin 1+2 Negative (Negative); Salmonella spp. by PCR Negative (Negative); Shigella spp + EIEC by PCR Negative (Negative)
[2022-08-14 06:36] LABS: #Basophils 0.1 10x3/uL (0.0-0.2); #Eosinphils 0.2 10x3/uL (0.0-0.5); #Monocytes 1.3 10x3/uL (0.0-1.1); #Neutrophils 5.1 10x3/uL (1.5-8.4); %Basophils 0.9 % (0.0-2.0); %Eosinophils 2.2 % (0.0-6.0); %Lymphocytes 27.1 % (18.0-47.0); %Monocytes 13.5 % (0.0-10.0); Hemoglobin 13.5 g/dL (13.5-17.5); Mean Corpuscular HGB CONC 33.4 g/dL (32.0-36.0); Mean Corpuscular Hemoglobin 29.7 pg (27.0-33.0); Mean Platelet Volume 9.2 fl (7.4-10.4); Platelet Count 455 10x3/uL (150-450); Red Blood Cell (RBC) Count 4.54 10x6/uL (4.32-5.72); White Blood Cell (WBC) Count 9.5 10x3/uL (3.5-10.5)
[2022-08-14 06:56] LABS: Anion Gap 15 mmol/L (10-20); BUN (Urea Nitrogen) 13 mg/dL (8.4-25.7); Calc. Creatinine Clearance 114 mL/min (70-130); Calcium 9.1 mg/dL (7.8-10.44); Carbon Dioxide 26 mmol/L (23-31); Chloride 102 mmol/L (98-107); Estimated GFR 92; Glucose 223 mg/dL (83-110); Magnesium 1.9 mg/dL (1.6-2.6); Potassium 3.8 mmol/L (3.5-5.1); Sodium 139 mmol/L (136-145)
[2022-08-14] MEDS: HumaLOG 300 UNITS/3 ML VIAL SC PRN ×2 (07:43→12:49)
[2022-08-14] MEDS ORDERED: Magnesium 2 GM/50 ML(in water) 1 GM in Premix Bag 1 BAG IVPB SCH (08:00)
[2022-08-14] MEDS ORDERED: Magnesium 2 GM/50 ML(in water) 2 GM in Premix Bag 1 BAG IVPB SCH (08:00)
[2022-08-14] MEDS ORDERED: Potassium Chloride 20 MEQ TAB PO SCH (08:00)
[2022-08-14] MEDS: Furosemide 40 MG/4 ML VIAL SLOW IVP SCH (09:14)
[2022-08-14] MEDS: Pantoprazole 40 MG VIAL IVP SCH (09:14)
[2022-08-14] MEDS: Lantus 1000 UNITS/10 ML VIAL SC SCH (09:15)
[2022-08-14] MEDS: Lisinopril 5 MG TAB PO SCH (09:15)
[2022-08-14] MEDS: Doxycycline 100 MG CAP PO SCH ×2 (09:15→21:43)
[2022-08-14] MEDS: Aspirin 81 mg Enteric Coated Tablet PO SCH (09:15)
[2022-08-14] MEDS: Clopidogrel Bisulfate 75 MG TAB PO SCH (09:15)
[2022-08-14] MEDS: Metoprolol Tartrate 25 MG TAB PO SCH ×2 (09:16→21:43)
[2022-08-14] MEDS ORDERED: Magnesium Oxide 400 MG TAB PO SCH (11:30)
[2022-08-14] MEDS: Atorvastatin Calcium 40 MG TAB PO SCH (21:43)
[2022-08-14] MEDS: Tamsulosin HCl 0.4 MG CAP PO SCH (21:43)
[2022-08-15 05:26] LABS: #Basophils 0.1 10x3/uL (0.0-0.2); #Eosinphils 0.2 10x3/uL (0.0-0.5); #Monocytes 1.2 10x3/uL (0.0-1.1); #Neutrophils 6.4 10x3/uL (1.5-8.4); %Basophils 0.7 % (0.0-2.0); %Eosinophils 1.7 % (0.0-6.0); %Lymphocytes 25.1 % (18.0-47.0); %Monocytes 11.1 % (0.0-10.0); %Neutrophils 59.6 % (40.0-75.0); Hemoglobin 13.6 g/dL (13.5-17.5); Mean Corpuscular HGB CONC 33.6 g/dL (32.0-36.0); Mean Corpuscular Hemoglobin 29.6 pg (27.0-33.0); Mean Corpuscular Volume 88.2 fl (81.2-95.1); Platelet Count 483 10x3/uL (150-450); RBC Distribution Width 14.1 % (11.5-14.5); Red Blood Cell (RBC) Count 4.59 10x6/uL (4.32-5.72); White Blood Cell (WBC) Count 10.7 10x3/uL (3.5-10.5)
[2022-08-15 05:36] LABS: Anion Gap 14 mmol/L (10-20); BUN (Urea Nitrogen) 14 mg/dL (8.4-25.7); Calc. Creatinine Clearance 108 mL/min (70-130); Calcium 8.9 mg/dL (7.8-10.44); Carbon Dioxide 27 mmol/L (23-31); Chloride 99 mmol/L (98-107); Estimated GFR 91; Glucose 219 mg/dL (83-110); Magnesium 1.9 mg/dL (1.6-2.6); Potassium 3.9 mmol/L (3.5-5.1); Sodium 136 mmol/L (136-145)
[2022-08-15] MEDS ORDERED: Magnesium 2 GM/50 ML(in water) 2 GM in Premix Bag 1 BAG IVPB SCH (06:00)
[2022-08-15] MEDS: HumaLOG 300 UNITS/3 ML VIAL SC PRN ×2 (06:55→20:41)
[2022-08-15] MEDS: Furosemide 40 MG/4 ML VIAL SLOW IVP SCH (08:51)
[2022-08-15] MEDS: Pantoprazole 40 MG VIAL IVP SCH (08:51)
[2022-08-15] MEDS: Lisinopril 5 MG TAB PO SCH (08:51)
[2022-08-15] MEDS: Clopidogrel Bisulfate 75 MG TAB PO SCH (08:52)
[2022-08-15] MEDS: Aspirin 81 mg Enteric Coated Tablet PO SCH (08:52)
[2022-08-15] MEDS: Lantus 1000 UNITS/10 ML VIAL SC SCH (08:52)
[2022-08-15] MEDS: Metoprolol Tartrate 25 MG TAB PO SCH ×2 (08:52→20:41)
[2022-08-15] MEDS: Doxycycline 100 MG CAP PO SCH ×2 (08:55→20:41)
[2022-08-15] MEDS: Magnesium Oxide 400 MG TAB PO SCH (08:56)
[2022-08-15] MEDS ORDERED: Communication Order-Pharmacy FS SCH (12:00)
[2022-08-15] MEDS: Atorvastatin Calcium 40 MG TAB PO SCH (20:41)
[2022-08-15] MEDS: Tamsulosin HCl 0.4 MG CAP PO SCH (20:41)
[2022-08-15] MEDS: Zolpidem Tartrate 5 MG TAB PO PRN (20:41)
[2022-08-16 06:27] LABS: PTT 26.2 sec (22.0-33.0); Prothrombin Time 10.9 sec (9.5-12.1)
[2022-08-16 06:28] LABS: #Basophils 0.1 10x3/uL (0.0-0.2); #Eosinphils 0.1 10x3/uL (0.0-0.5); #Monocytes 1.3 10x3/uL (0.0-1.1); #Neutrophils 5.8 10x3/uL (1.5-8.4); %Basophils 0.8 % (0.0-2.0); %Eosinophils 1.4 % (0.0-6.0); %Lymphocytes 25.1 % (18.0-47.0); %Monocytes 13.1 % (0.0-10.0); %Neutrophils 58.2 % (40.0-75.0); Hemoglobin 13.7 g/dL (13.5-17.5); Mean Corpuscular HGB CONC 33.2 g/dL (32.0-36.0); Mean Corpuscular Hemoglobin 29.3 pg (27.0-33.0); Mean Corpuscular Volume 88.2 fl (81.2-95.1); Mean Platelet Volume 8.9 fl (7.4-10.4); Platelet Count 503 10x3/uL (150-450); RBC Distribution Width 14.2 % (11.5-14.5); Red Blood Cell (RBC) Count 4.68 10x6/uL (4.32-5.72)
[2022-08-16] MEDS: HumaLOG 300 UNITS/3 ML VIAL SC PRN ×2 (06:43→22:51)
[2022-08-16 06:45] LABS: ALT (SGPT) 50 U/L (8-55); AST (SGOT) 19 U/L (5-34); Albumin 3.6 g/dL (3.4-4.8); Alkaline Phosphatase 82 U/L (40-110); Anion Gap 16 mmol/L (10-20); BUN (Urea Nitrogen) 19 mg/dL (8.4-25.7); Calc. Creatinine Clearance 106 mL/min (70-130); Calcium 9.1 mg/dL (7.8-10.44); Carbon Dioxide 26 mmol/L (23-31); Chloride 99 mmol/L (98-107); Estimated GFR 90; Globulin 3.1 g/dL (2.4-3.5); Glucose 204 mg/dL (83-110); Protein, Total 6.7 g/dL (5.8-8.1); Sodium 137 mmol/L (136-145)
[2022-08-16 08:32] LABS: Magnesium 2.2 mg/dL (1.6-2.6)
[2022-08-16] MEDS: Lantus 1000 UNITS/10 ML VIAL SC SCH (08:43)
[2022-08-16] MEDS: Lisinopril 5 MG TAB PO SCH (08:43)
[2022-08-16] MEDS: Metoprolol Tartrate 25 MG TAB PO SCH (08:43)
[2022-08-16] MEDS: Pantoprazole 40 MG VIAL IVP SCH (08:43)
[2022-08-16] MEDS: Aspirin 81 mg Enteric Coated Tablet PO SCH (08:43)
[2022-08-16] MEDS: Furosemide 40 MG/4 ML VIAL SLOW IVP SCH (08:43)
[2022-08-16] MEDS: Clopidogrel Bisulfate 75 MG TAB PO SCH (08:43)
[2022-08-16] MEDS: Doxycycline 100 MG CAP PO SCH ×2 (08:43→21:14)
[2022-08-16] MEDS ORDERED: Lidocaine 1% (PF) 30 ML VIAL ONE (09:56)
[2022-08-16] MEDS: Magnesium Oxide 400 MG TAB PO SCH (10:44)
[2022-08-16] MEDS ORDERED: Heparin 10,000 UNITS/ 10 ML VIAL ONE (11:31)
[2022-08-16] MEDS ORDERED: Fentanyl 100 MCG/2 ML VIAL ONE (11:31)
[2022-08-16] MEDS ORDERED: Midazolam HCl 2 mg/2 ml Vial ONE (11:32)
[2022-08-16] MEDS ORDERED: Bivalirudin 250 MG VIAL ONE ×2 (12:12→12:23)
[2022-08-16] MEDS ORDERED: TICAGRELOR 90 MG TABLET ONE (12:20)
[2022-08-16] MEDS ORDERED: Atropine Sulfate 0.4 mg/1 ml Vial ONE (12:28)
[2022-08-16] MEDS: Sodium Chloride 0.9% 1,000 ML IV SCH (14:57)
[2022-08-16] MEDS ORDERED: Iopamidol 300 61% 100 ML VIAL FS ONE (15:49)
[2022-08-16] MEDS ORDERED: Metoprolol Tartrate 25 MG TAB PO SCH (21:00)
[2022-08-16] MEDS: Tamsulosin HCl 0.4 MG CAP PO SCH (21:13)
[2022-08-16] MEDS: Atorvastatin Calcium 40 MG TAB PO SCH (21:14)
[2022-08-16] MEDS: Zolpidem Tartrate 5 MG TAB PO PRN (21:22)
[2022-08-17] MEDS: Sodium Chloride 0.9% 1,000 ML IV SCH (01:07)
[2022-08-17 06:08] LABS: ALT (SGPT) 45 U/L (8-55); AST (SGOT) 20 U/L (5-34); Albumin 3.3 g/dL (3.4-4.8); Alkaline Phosphatase 74 U/L (40-110); Anion Gap 14 mmol/L (10-20); BUN (Urea Nitrogen) 17 mg/dL (8.4-25.7); Calc. Creatinine Clearance 109 mL/min (70-130); Calcium 8.4 mg/dL (7.8-10.44); Carbon Dioxide 25 mmol/L (23-31); Chloride 104 mmol/L (98-107); Estimated GFR 91; Globulin 2.7 g/dL (2.4-3.5); Glucose 178 mg/dL (83-110); Potassium 4.2 mmol/L (3.5-5.1); Sodium 139 mmol/L (136-145)
[2022-08-17 06:19] LABS: #Basophils 0.1 10x3/uL (0.0-0.2); #Eosinphils 0.1 10x3/uL (0.0-0.5); #Monocytes 1.1 10x3/uL (0.0-1.1); #Neutrophils 6.8 10x3/uL (1.5-8.4); %Basophils 0.7 % (0.0-2.0); %Eosinophils 0.6 % (0.0-6.0); %Lymphocytes 19.1 % (18.0-47.0); %Monocytes 11.1 % (0.0-10.0); %Neutrophils 67.3 % (40.0-75.0); Hemoglobin 13.1 g/dL (13.5-17.5); Mean Corpuscular HGB CONC 32.7 g/dL (32.0-36.0); Mean Corpuscular Hemoglobin 29.4 pg (27.0-33.0); Mean Corpuscular Volume 89.9 fl (81.2-95.1); Mean Platelet Volume 9.2 fl (7.4-10.4); Platelet Count 482 10x3/uL (150-450); RBC Distribution Width 14.1 % (11.5-14.5); Red Blood Cell (RBC) Count 4.46 10x6/uL (4.32-5.72); White Blood Cell (WBC) Count 10.1 10x3/uL (3.5-10.5)
[2022-08-17] MEDS: Furosemide 40 MG/4 ML VIAL SLOW IVP SCH (08:59)
[2022-08-17] MEDS: Pantoprazole 40 MG VIAL IVP SCH (08:59)
[2022-08-17] MEDS: Aspirin 81 mg Enteric Coated Tablet PO SCH (09:00)
[2022-08-17] MEDS ORDERED: Metoprolol Tartrate 25 MG TAB PO SCH (09:00)
[2022-08-17] MEDS: Lantus 1000 UNITS/10 ML VIAL SC SCH (09:00)
[2022-08-17] MEDS: Doxycycline 100 MG CAP PO SCH (09:00)
[2022-08-17] MEDS: Lisinopril 5 MG TAB PO SCH (09:00)
[2022-08-17] MEDS: Clopidogrel Bisulfate 75 MG TAB PO SCH (09:00)
[2022-08-17] MEDS: Magnesium Oxide 400 MG TAB PO SCH (09:02)
[2022-08-17 16:18] VITALS: BP 136/62; TEMP 98.2
== END 2022-08-17 17:05 | disposition home or self-care (01) | DRG 853 ==
LOC: CSHERS 17:55 → CSHIMCU 20:56 → CSHTELE 08-11 15:01
PROVIDERS: ADMIT Family Medicine; ATTEND Internal Medicine
PROC: 3E03329 Introduction of Other Anti-infective into Peripheral Vein, Percutaneous Approach (ICD-10-PCS; principal; 2022-08-08)
PROC: 5A09357 Assistance with Respiratory Ventilation, Less than 24 Consecutive Hours, Continuous Positive Airway Pressure (ICD-10-PCS; 2022-08-16)
PROC: 027034Z Dilation of Coronary Artery, One Artery with Drug-eluting Intraluminal Device, Percutaneous Approach (ICD-10-PCS; 2022-08-16)
PROC: 02713ZZ Dilation of Coronary Artery, Two Arteries, Percutaneous Approach (ICD-10-PCS; 2022-08-16)
PROC: 4A023N7 Measurement of Cardiac Sampling and Pressure, Left Heart, Percutaneous Approach (ICD-10-PCS; 2022-08-16)
PROC: B2111ZZ Fluoroscopy of Multiple Coronary Arteries using Low Osmolar Contrast (ICD-10-PCS; 2022-08-16)
PROC: B2151ZZ Fluoroscopy of Left Heart using Low Osmolar Contrast (ICD-10-PCS; 2022-08-16)
DX: A41.9 Sepsis, unspecified organism (principal); E11.10 Type 2 diabetes mellitus with ketoacidosis without coma; J96.01 Acute respiratory failure with hypoxia; I21.A1 Myocardial infarction type 2; I47.20 Ventricular tachycardia, unspecified; N39.0 Urinary tract infection, site not specified; I50.22 Chronic systolic (congestive) heart failure; N40.1 Benign prostatic hyperplasia with lower urinary tract symptoms; R35.0 Frequency of micturition; E78.5 Hyperlipidemia, unspecified; I95.9 Hypotension, unspecified; F41.9 Anxiety disorder, unspecified; E87.6 Hypokalemia; F98.8 Other specified behavioral and emotional disorders with onset usually occurring in childhood and adolescence; K21.9 Gastro-esophageal reflux disease without esophagitis; N35.919 Unspecified urethral stricture, male, unspecified site; R77.8 Other specified abnormalities of plasma proteins; I11.0 Hypertensive heart disease with heart failure; I45.10 Unspecified right bundle-branch block; I25.10 Atherosclerotic heart disease of native coronary artery without angina pectoris; I08.1 Rheumatic disorders of both mitral and tricuspid valves; I45.81 Long QT syndrome; I25.5 Ischemic cardiomyopathy; G47.33 Obstructive sleep apnea (adult) (pediatric); Z20.822 Contact with and (suspected) exposure to COVID-19; F32.A Depression, unspecified; Z79.899 Other long term (current) drug therapy; Z79.84 Long term (current) use of oral hypoglycemic drugs; Z79.82 Long term (current) use of aspirin; Z90.89 Acquired absence of other organs; Z83.3 Family history of diabetes mellitus; Z82.49 Family history of ischemic heart disease and other diseases of the circulatory system; Z90.49 Acquired absence of other specified parts of digestive tract
CPT/HCPCS: 36415; 36416; 36600; 70450; 71045; 80048; 80053; 80061; 80202; 81001; 82010; 82550; 82553; 82805; 83036; 83605; 83690; 83735; 83880; 84100; 84145; 84443; 84484; 85025; 85027; 85610; 85730; 87040; 87086; 87324; 87449; 87493; 87505; 92920; 92921; 92928; 93005; 93010; 93306; 93458; 94660; 94760; 94762; 96365; 96366; 96367; 97139; 99152; 99153; C1725; C1760; C1769; C1874; C1887; C9113; C9600; J0282; J0283; J0461; J0583; J0692; J1644; J1650; J1815; J1940; J2001; J2250; J2543; J3010; J3370; J3475; J3480; J3490; J7050; J7999; Q9967; U0002

== ENCOUNTER 2023-07-06 03:31 | Inpatient (IN) | payer MEDICARE ==
[2023-07-06] MEDS ORDERED: Lidocaine 1% w/Epinephrine 1:200K 30 ML VIAL ONE (04:22)
[2023-07-06] MEDS ORDERED: Boostrix 0.5 ML (Tdap) VIAL (>/=7 yrs of age) ONE (04:22)
[2023-07-06 04:38] LABS: #Eosinphils 0.1 10x3/uL (0.0-0.5); #Monocytes 0.8 10x3/uL (0.0-1.1); #Neutrophils 7.6 10x3/uL (1.5-8.4); %Basophils 0.3 % (0.0-2.0); %Eosinophils 1.5 % (0.0-6.0); %Lymphocytes 7.3 % (18.0-47.0); %Monocytes 8.2 % (0.0-10.0); %Neutrophils 82.4 % (40.0-75.0); Hematocrit 37.9 % (38.8-50.0); Hemoglobin 12.7 g/dL (13.5-17.5); Mean Corpuscular HGB CONC 33.5 g/dL (32.0-36.0); Mean Corpuscular Hemoglobin 30.3 pg (27.0-33.0); Mean Corpuscular Volume 90.5 fl (81.2-95.1); Mean Platelet Volume 9.7 fl (7.4-10.4); Platelet Count 233 10x3/uL (150-450); RBC Distribution Width 14.4 % (11.5-14.5); Red Blood Cell (RBC) Count 4.19 10x6/uL (4.32-5.72); White Blood Cell (WBC) Count 9.2 10x3/uL (3.5-10.5)
[2023-07-06 04:54] LABS: ALT (SGPT) 149 U/L (8-55); AST (SGOT) 100 U/L (5-34); Albumin 3.6 g/dL (3.4-4.8); Alkaline Phosphatase 97 U/L (40-110); Anion Gap 15 mmol/L (10-20); BUN (Urea Nitrogen) 14 mg/dL (8.4-25.7); Bilirubin, Total 0.9 mg/dL (0.2-1.2); Calc. Creatinine Clearance 0 mL/min (70-130); Carbon Dioxide 20 mmol/L (23-31); Chloride 104 mmol/L (98-107); Estimated GFR 68; Globulin 2.7 g/dL (2.4-3.5); Glucose 229 mg/dL (83-110); Magnesium 1.4 mg/dL (1.6-2.6); Potassium 3.2 mmol/L (3.5-5.1); Protein, Total 6.3 g/dL (5.8-8.1); Sodium 136 mmol/L (136-145)
[2023-07-06] MEDS ORDERED: Potassium Bicarbonate/Cit Ac 20 MEQ TAB ONE (05:09)
[2023-07-06] MEDS ORDERED: Aspirin Chewable 81 MG TAB ONE (06:25)
[2023-07-06] MEDS ORDERED: Acetaminophen 325 MG TAB PO PRN (07:32)
[2023-07-06] MEDS ORDERED: hydrALAZINE 20 MG/ML VIAL SLOW IVP PRN (07:32)
[2023-07-06] MEDS ORDERED: Dextrose 50% Abboject 50 ML SYRINGE SLOW IVP PRN (07:36)
[2023-07-06] MEDS ORDERED: Dextrose 5% in Water 1,000 ML IV PRN (07:36)
[2023-07-06] MEDS ORDERED: Glucagon 1 MG/ML KIT IM PRN (07:36)
[2023-07-06] MEDS ORDERED: Famotidine 20 MG TAB ONE (08:15)
[2023-07-06] MEDS: Magnesium Oxide 400 MG TAB PO SCH (08:18)
[2023-07-06] MEDS: Famotidine 20 MG TAB PO SCH (08:21)
[2023-07-06] MEDS ORDERED: SEMAGLUTIDE 7 MG PO SCH (09:00)
[2023-07-06 09:38] LABS: Troponin I 0.094 ng/mL (< 0.028)
[2023-07-06] MEDS ORDERED: Iopamidol 370 76% 100 ML VIAL ONE (10:10)
[2023-07-06] MEDS ORDERED: Sulfameth/Trimethoprim DS 800-160mg TAB ONE (10:36)
[2023-07-06] MEDS ORDERED: ALPRAZolam 0.5 MG TAB ONE (10:36)
[2023-07-06] MEDS: Sulfameth/Trimethoprim DS 800-160mg TAB PO SCH (10:41)
[2023-07-06] MEDS: ALPRAZolam 0.5 MG TAB PO SCH (10:42)
[2023-07-06] MEDS ORDERED: Magnesium 2 GM/50 ML BAG (IN WATER) ONE (13:08)
[2023-07-06] MEDS: Magnesium 2 GM/50 ML(in water) 2 GM in Premix 1 BAG IVPB SCH (13:10)
[2023-07-06 17:04] VITALS: BMI 31.7
[2023-07-06] MEDS: Tamsulosin HCl 0.4 MG CAP PO SCH (21:17)
[2023-07-06] MEDS: Metoprolol Tartrate 25 MG TAB PO SCH (21:17)
[2023-07-06] MEDS: Atorvastatin Calcium 40 MG TAB PO SCH (21:17)
[2023-07-06] MEDS: ALPRAZolam 0.25 MG TAB PO SCH (21:17)
[2023-07-06] MEDS: Finasteride 5 MG TAB PO SCH (21:17)
[2023-07-06] MEDS: Insulin Regular 300 UNITS/3 ML VIAL SC PRN (21:49)
[2023-07-07 04:34] LABS: ALT (SGPT) 127 U/L (8-55); AST (SGOT) 54 U/L (5-34); Albumin 3.2 g/dL (3.4-4.8); Alkaline Phosphatase 108 U/L (40-110); Anion Gap 13 mmol/L (10-20); BUN (Urea Nitrogen) 13 mg/dL (8.4-25.7); Bilirubin, Total 0.6 mg/dL (0.2-1.2); Calc. Creatinine Clearance 87 mL/min (70-130); Carbon Dioxide 23 mmol/L (23-31); Cardiac Risk 3.3 (Less than 4.5); Chloride 105 mmol/L (98-107); Cholesterol 92 mg/dl (< 200 Desired); Estimated GFR 82; Globulin 2.5 g/dL (2.4-3.5); Glucose 174 mg/dL (83-110); HDL Cholesterol 28 mg/dL (>60 Neg Risk); LDL Cholesterol, Calculated 41 mg/dL; Magnesium 1.8 mg/dL (1.6-2.6); Potassium 3.1 mmol/L (3.5-5.1); Protein, Total 5.7 g/dL (5.8-8.1); Sodium 138 mmol/L (136-145)
[2023-07-07 04:39] LABS: Calcium 8.2 mg/dL (7.8-10.44); Triglycerides 113 mg/dL (Less than 150)
[2023-07-07] MEDS: Aspirin 81 mg Enteric Coated Tablet PO SCH (09:27)
[2023-07-07] MEDS: Lisinopril 5 MG TAB PO SCH (09:27)
[2023-07-07] MEDS: glipiZIDE 5 MG TAB PO SCH (09:28)
[2023-07-07] MEDS: Potassium Chloride 20 MEQ TAB PO SCH (09:28)
[2023-07-07] MEDS: Isosorbide Mononitrate 30 MG ER.TAB PO SCH (09:28)
[2023-07-07] MEDS: Clopidogrel Bisulfate 75 MG TAB PO SCH (11:03)
[2023-07-07 13:15] VITALS: BP 126/64; TEMP 98.7
== END 2023-07-07 14:15 | disposition home or self-care (01) | DRG 71 ==
LOC: CSHERS 03:31 → CSHERHOLD 06:47 → CSHTELE 16:09
PROVIDERS: ADMIT Student in an Organized Health Care Education/Training Program; ATTEND Nurse Practitioner Acute Care
PROC: 0HQ1XZZ Repair Face Skin, External Approach (ICD-10-PCS; principal; 2023-07-06)
PROC: 5A09357 Assistance with Respiratory Ventilation, Less than 24 Consecutive Hours, Continuous Positive Airway Pressure (ICD-10-PCS; 2023-07-06)
DX: I67.2 Cerebral atherosclerosis (principal); I24.89 Other forms of acute ischemic heart disease; I50.32 Chronic diastolic (congestive) heart failure; I65.02 Occlusion and stenosis of left vertebral artery; S01.111A Laceration without foreign body of right eyelid and periocular area, initial encounter; I25.10 Atherosclerotic heart disease of native coronary artery without angina pectoris; I25.5 Ischemic cardiomyopathy; R29.6 Repeated falls; E11.9 Type 2 diabetes mellitus without complications; I11.0 Hypertensive heart disease with heart failure; N40.0 Benign prostatic hyperplasia without lower urinary tract symptoms; E78.5 Hyperlipidemia, unspecified; F32.A Depression, unspecified; N35.919 Unspecified urethral stricture, male, unspecified site; E87.6 Hypokalemia; E83.42 Hypomagnesemia; R29.90 Unspecified symptoms and signs involving the nervous system; W18.30XA Fall on same level, unspecified, initial encounter; E66.9 Obesity, unspecified; Z74.09 Other reduced mobility; I25.2 Old myocardial infarction; Z79.899 Other long term (current) drug therapy; Z79.84 Long term (current) use of oral hypoglycemic drugs; Z79.82 Long term (current) use of aspirin; Z90.89 Acquired absence of other organs; Z83.3 Family history of diabetes mellitus; Z68.31 Body mass index [BMI] 31.0-31.9, adult; Z90.49 Acquired absence of other specified parts of digestive tract
CPT/HCPCS: 12013; 36415; 36416; 70450; 70496; 70551; 72125; 80053; 80061; 83735; 83880; 84484; 85025; 90471; 90715; 93005; 94760; J1815; J3475; Q9967

== ENCOUNTER 2025-03-15 17:34 | Emergency (ER) | payer MEDICARE ==
[2025-03-15 19:11] LABS: #Basophils 0.06 10x3/uL (0.0-0.2); #Eosinophils 0.27 10x3/uL (0.0-0.5); #Monocytes 1.04 10x3/uL (0.0-1.1); #Neutrophils 6.94 10x3/uL (1.5-8.4); %Basophils 0.6 % (0.0-2.0); %Eosinophils 2.5 % (0.0-6.0); %Lymphocytes 22.8 % (18.0-47.0); %Monocytes 9.6 % (0.0-10.0); %Neutrophils 64.1 % (40.0-75.0); Hematocrit 40.6 % (38.8-50.0); Hemoglobin 13.6 g/dL (13.5-17.5); Mean Corpuscular Hemoglobin 30.2 pg (27.0-33.0); Mean Corpuscular Volume 90.0 fL (81.2-95.1); Platelet Count 329 10x3/uL (150-450); Red Blood Cell (RBC) Count 4.51 10x6/uL (4.32-5.72); White Blood Cell (WBC) Count 10.82 10x3/uL (3.5-10.5)
[2025-03-15 19:22] LABS: ALT (SGPT) 28 U/L (Less than 45); AST (SGOT) 20 U/L (11-34); Albumin 3.6 g/dL (3.1-4.5); Alkaline Phosphatase 71 U/L (40-110); Anion Gap 16 mmol/L (10-20); BUN (Urea Nitrogen) 15 mg/dL (8.4-25.7); Bilirubin, Total 0.3 mg/dL (0.3-1.2); Calc. Creatinine Clearance 0 mL/min (70-130); Calcium 8.6 mg/dL (7.8-10.44); Carbon Dioxide 20 mmol/L (23-31); Chloride 110 mmol/L (98-107); Globulin 2.9 g/dL (2.4-3.5); Glucose 101 mg/dL (83-110); Potassium 4.0 mmol/L (3.5-5.1); Sodium 142 mmol/L (136-145)
[2025-03-15 19:29] LABS: Troponin I Less than 0.010 ng/mL (< 0.028)
== END 2025-03-15 19:47 | disposition home or self-care (01) ==
LOC: CSHERS 17:34
DX: R06.02 Shortness of breath (principal); R07.89 Other chest pain; E11.9 Type 2 diabetes mellitus without complications; I10 Essential (primary) hypertension; I25.2 Old myocardial infarction
CPT/HCPCS: 71045; 80053; 84484; 85025; 93005